=== PATIENT | male | born 1970 | race Caucasian/White ===

== ENCOUNTER 2022-07-01 16:15 | Emergency (ER) | payer OTHER, SELFPAY ==
[2022-07-01 16:28] VITALS: BP 155/98; PULSE 65; RESP 16; TEMP 36.6; O2SAT 100
--- NOTE | 2022-07-01 16:51 | ED.GENADULT ---
HPI - General Adult General Chief complaint: Dental/Oral Stated complaint: ear ache, sinus pressure, sore lymph nodes Time Seen by Provider: 07/01/22 16:52 Source: patient Mode of arrival: ambulatory Limitations: no limitations History of Present Illness HPI narrative: 51-year-old male presents with complaint of pain to left maxillary sinus area for 2-3 days. Is concerned that he has a sinus infection or dental infection. Reports that pain radiates to left ear intermittently. Also has some lymph node swelling to left side of neck. He reports that he has been blowing his nose but this is normal for him and the fall due to allergies, works on a farm. Takes Gwen daily. Afebrile. No cough or postnasal drainage. No tenderness to teeth. Afebrile. All systems reviewed and negative except as noted above. Related Data Allergies Allergy/AdvReac Type Severity Reaction Status Date / Time No Known Allergies Allergy Mild Verified 07/01/22 16:48 Review of Systems Review of Systems: CONSTITUTIONAL: Denies fever, chills, or sweats. EYES: Denies visual changes, redness, or discharge. ENT: Denies rhinorrhea, congestion, sore throat . Reports left maxillary sinus pain and tenderness with radiation to left ear CARDIOVASCULAR: Denies chest pain, palpitations, or edema. RESPIRATORY: Denies cough or dyspnea. GASTROINTESTINAL: Denies abdominal pain, nausea, vomiting, or diarrhea. GENITOURINARY: Denies dysuria or hematuria. SKIN: Denies rash or itching. MUSCULOSKELETAL: Denies back pain, joint pain, or myalgia. NEUROLOGIC: Denies headache, numbness, or weakness. PSYCHIATRIC: Denies anxiety or depression. All other systems reviewed are negative, except as documented in HPI. PMFSH Comments At time of signature, agree with nursing past medical, surgical, social and family history. There is no relevant family history pertinent to the presenting complaint. Exam Narrative: GENERAL: This is a well-nourished, well-developed patient, in no apparent distress. HEAD: normocephalic, atraumatic. EYES: PERRL. Sclera clear/white. Vision is grossly intact. EARS: External ears normal, auditory canals clear and without drainage, TMs normal without perforation. Hearing grossly intact. NOSE: External nose normal with no obvious nasal discharge, nares without redness, no rhinorrhea. left maxillary sinus tenderness. Multiple fillings, caps to teeth. No tenderness on exam. No significant swelling, erythema to the gums. THROAT: Mucous membranes moist, posterior pharynx clear. NECK: Neck supple, non-tender without lymphadenopathy, masses or thyromegaly. CARDIOVASCULAR: Regular rate and rhythm without murmurs, gallops, or rubs. RESPIRATORY: Clear to auscultation. Breath sounds equal bilaterally. No wheezes, rales, or rhonchi. SKIN: warm, Dry, intact with no suspicious lesions or rash, good texture and turgor. NEURO: awake, alert, and oriented to person, place and time. There were no obvious focal neurologic abnormalities. EXTREMITIES: No joint tenderness, effusion, or edema noted. Course Course Level of Care: Express Care Visit Vital Signs Vital signs: Vital Signs Temperature 36.6 C 07/01/22 16:28 Pulse Rate 65 07/01/22 16:28 Respiratory Rate 16 07/01/22 16:28 Blood Pressure 155/98 H 07/01/22 16:28 Pulse Oximetry 100 07/01/22 16:28 Oxygen Delivery Room Air 07/01/22 16:28 Temperature 36.6 C 07/01/22 16:28 Pulse Rate 65 07/01/22 16:28 Respiratory Rate 16 07/01/22 16:28 Blood Pressure 155/98 H 07/01/22 16:28 Pulse Oximetry 100 07/01/22 16:28 Oxygen Delivery Room Air 07/01/22 16:28 reviewed Medical Decision Making MDM Narrative Medical decision making narrative: no exam findings concerning for bacterial sinusitis. Will prescribe antibiotic due to left maxillary sinus tenderness. Recommend that patient follow-up with his dentist at next available appointment. Vital Signs Vital Signs: Vital Signs Temp
== END 2022-07-01 17:01 | disposition home or self-care (01) ==
PROVIDERS: Emergency Provider Nurse Practitioner Family
DX: G50.1 Atypical facial pain (principal); Z86.16 Personal history of COVID-19
CPT/HCPCS: 99213; G0463